=== PATIENT | male | born 1955 | race Caucasian/White ===

== ENCOUNTER 2017-11-30 09:00 | Outpatient (RCR) | payer MEDICAID, SELFPAY ==
--- NOTE | 2017-11-04 14:00 | NT_ITS ---
11/04/17 Armando states he has been ambulating without his cane the last couple days and is holding up well with this. Just got back from a chiropractic appt. He did receive manipulation and stim. Today's visit was a no charge as we did not perform any manual therapy or therapeutic procedure activities. Time was spent with patient education regarding MRI results which do indicate L5 nerve root impingement on L from disc extrusion. Will follow up with Armando next week for manual therapy techniques for Mulligan style SLR, manual distraction techniques via leg pulls as well as incorporate some soft tissue work to the L lumbar paraspinals and QL. MM/dl
--- NOTE | 2017-11-07 15:25 | PTTR_ITS ---
DATE: 11/07/17 Co treatment with KENDALL SanchezT: OBJECTIVE: Manual therapy: ([id number]). STM t/o low back and pelvic brim region. CFM over bilateral lumbar paraspinals, pelvic brim and sacral borders. Myofascial stretching t/o entire low back and pelvic brim region. * x Electrical Stim Unattended - [id number]: ended with IFC and cryo x 15 min while prone. Direct treatment time: 25 min Total treatment time: 40 min
--- NOTE | 2017-11-07 16:06 | PTTR_ITS ---
DATE: 11/07/17 SUBJECTIVE: Armando is looking into a referral for [facility]. Admits his calf pain has diminished. Is still using a crutch on occasion for ambulation purposes secondary to continued left LE radicular symptoms. OBJECTIVE: Manual therapy: ([id number]). Lumbopelvic mobs using extension techniques with Yonatan approach with PAs L2 through L5 followed by Mulligan style SLR on the left as well as manual distraction techniques. Direct treatment time: 2:30 til 3:00 P.M. Followed by soft tissue mobs with the REFINERY OPERATOR HELPER. See her note for details. Plan: Continue as indicated above. MM/gc
--- NOTE | 2017-11-10 16:00 | PTTR_ITS ---
DATE: 11/10/17 SUBJECTIVE: Seeing Dr. Ayoub next Tuesday to get a referral to pain clinic. Able to travel to [place] fairly comfortably. OBJECTIVE: Manual therapy: ([id number]). Arrived to [facility] ambulating without assistive device today. Mobilization of lumbopelvic region consisting of supine left leg pulls, Mulligan SLR technique and prone grade 2 PA mobs from L2 to L5. STM while in prone performing tendon massage along the lower thoracic/ lumbar vertebrae, iliac crest and sacral border, CFM to lumbar paraspinals, TPM to piriformis and gluts. Fascial stretching throughout the entire left low back and buttock. Had patient perform 10 prone press ups prior to application of IFC and cryotherapy. * x Electrical Stim Unattended - [id number]: Ended session with IFC and cryotherapy x 15 minutes to low back / left buttock while in prone. Direct treatment time: 30 minutes Total treatment time: 45 minutes
--- NOTE | 2017-11-14 14:00 | PTTR_ITS ---
DATE: 11/14/17 Co-treat with supervising PT, Kody Mcclure. OBJECTIVE: Manual therapy: ([id number]). STM to low back / left buttock while in prone consisting of tendon massage to lower thoracic / lumbar vertebrae, iliac crest and sacral border. CFM to lumbar paraspinals, TPM to gluts, skin rolling to thoracic and lumbar paraspinals. * x Electrical Stim Unattended - [id number]: Ended session with IFC and cryotherapy to low back /left buttock x 15 minutes while in side lying with pillow under head and between knees. Direct treatment time: 15 minutes Total treatment time: 30 minutes, post time spent with supervising PT.
--- NOTE | 2017-11-14 14:06 | PTTR_ITS ---
DATE: 11/14/17 SUBJECTIVE: Armando states that he is holding up considerably well. Drove to [place] and back to see his mother with manageable symptoms and no increase in radicular left LE pain. Was conscientious of proper lumbar positioning with use of a small pillow in his low back. Reports compliancy with his extension exercises. Is set up for a consultation at [facility], Dr. Velásquez, in mid to late January. He will speak with his PCP regarding a possible Pain Clinic referral. OBJECTIVE: Manual therapy: ([id number]). Mulligan style SLR to the left LE, manual distraction via leg pulls, posterior hip stretching of IT band and piriformis stretching, PA mobs in prone to L2 through L5 as well as segmental rotational mobs L2 through L5 S1 levels. He then rec'd soft tissue mobs performed by the STAFF PSYCHOLOGIST. For details see her note. Still (+) discogenic sign with SLR on his left. This is (-) on his right. (+) for pain reproduction with repetitive forward flexion for reproduction of LE radicular signs. Overall, appears to be making good gains functional stand point, i.e. walking short distances without the use of an axillary crutch and has resumed sleeping in his bed. Direct treatment time: 1:30 til 2:00 P.M. Plan: Continue as indicated above implementing Phase 1 core stabilization exercises at patient's next visit. MM/gc
--- NOTE | 2017-11-16 10:00 | PTTR_ITS ---
DATE: 11/16/17 SUBJECTIVE: Armando states that he has been having a little R sided back pain. Thinks it may be related on him laying for longer period of time for sleep which he is happy about, but admits that his mattress is not very ideal and does not have money to purchase a new one. Continues to use axillary crutch for community ambulation. Manual therapy: ([id number]). LE distraction via leg pulls on the L followed by Mulligan style SLR on the L. Then performed PA mobilizations grade 3 to the lumbar spine as well as segmental mobilizations into rotation l and R L1-L5. Then performed some light manual over pressure on L4-L5 while performing prone press ups. Direct treatment time: 30 mins Total treatment time: 30 mins with continued care with Ginger Stewart PTA for soft tissue work (see her note for specifics) A: Improvement with extension as he is able to nearly complete full elbow extension for press up. Did progress this to incorporate some exhalation at end range which he is able to isolate more pressure type discomfort centrally in low back with no radicular symptoms. P: Continue as above. MM/dl
--- NOTE | 2017-11-16 10:30 | PTTR_ITS ---
DATE: 11/16/17 Co-treat with supervising PT, Kody Mcclure. OBJECTIVE: Manual therapy: ([id number]). Mobilization of soft tissue throughout the low back with focus on the right today, while in prone. This included tendon massage along the lower thoracic / lumbar, iliac crest, CFM to bilateral lumbar paraspinals and TPM to right QL, iliocostalis lumborum and PRT to posterior obliques. As was the situation at last session, due to stomach sensitivity from hernia region of stomach when lying on stomach, pt transitioned to left side lying for stim and cryotherapy. * x Electrical Stim Unattended - [id number]: Ended session with IFC and cryotherapy x 15 minutes to low back while in left side lying with pillow under head and between knees. Direct treatment time: 15 minutes Total treatment time: 30 minutes
--- NOTE | 2017-11-21 13:45 | PTTR_ITS ---
DATE: 11/21/17 SUBJECTIVE: Indicated he had to take Tylenol for the first time in a few days over the weekend, after sitting for 4 hours while visiting with a friend. Had to leave his son's football scrimmage game on Tuesday after one hour due to standing for too long. Seeing chiropractor tomorrow. OBJECTIVE: Arrived to dept without crutch, ambulating without significant limp. Manual therapy: ([id number]). Mobilization of lumbopelvic region consisting of unilateral and bilateral leg pulls, Mulligan SLR on the left, prone positioned PA mobs at grade 2, as well as segmental rotational mobs at grade 2 at L1-L5 levels. Performed prone press ups x 10 reps and STM throughout the low back with focus on the left while in prone. Soft tissue mobilization included tendon massage along the lower thoracic / lumbar vertebrae and iliac crest, CFM and skin rolling technique to paraspinals, * x Electrical Stim Unattended - 61652m1: Ended session with IFC and cryotherapy x 15 minutes to low back while in left side lying with pillow between knees and under head. Direct treatment time: 25 minutes Total treatment time: 40 minutes
--- NOTE | 2017-11-24 10:08 | PTTR_ITS ---
DATE: 11/24/17 CO TREATMENT with supervising Suzette, Luis Carlos Mcclure. OBJECTIVE: Manual therapy: ([id number]). Soft tissue mobs throughout the low back and left upper buttock region. This was performed while in the prone position. Did utilize tendon massage along the lower thoracic, lumbar vertebrae, iliac crest as well as TP work to the left QL and glute. Cross friction to the lumbar paraspinals. Myofascial stretching to the entire low back and upper left buttock. * x Electrical Stim Unattended - [id number]: applied w/cryotherapy to the low back region while in side lying with a pillow between his knees and under his head x15 minutes. Direct treatment time: 15 min. Total treatment time: 30 min. SG/gc
--- NOTE | 2017-11-24 14:06 | PTTR_ITS ---
DATE: 11/24/17 SUBJECTIVE: Armando states his tolerating his golf outing well without significant LE radiculopathy. OBJECTIVE: Manual therapy: ([id number]). LE distractions on the left with leg pull followed by Mulligan style SLR. Then performed PA mobs in prone as well as gentle segmental mobs at a Grade 3 in prone. The patient was then seen by the DEVELOPER PROVER MECHANICAL for soft tissue mobs. Direct treatment time: 11:00 til 11:30 A.M. Assessment: Continues to make good steady gains regarding his radiculopathy and improved functional mobility. I do feel it is appropriate to start progressing with some core stabilization and light cardiovascular exercise as long as it does not exacerbate any of his symptoms of radiculopathy. The patient is in agreement with this POC. Plan: Continue 2x per week. MM/gc
--- NOTE | 2017-11-28 13:54 | PTTR_ITS ---
DATE: 11/28/17 SUBJECTIVE: Sven states that he was doing well, until this wknd. He reports helping his son remodel a room in new home. Indicated that he sat on a bucket and sanded for a few hours. He then played golf the next day of which he reports only being able to golf 12 holes and sat in golf cart the remainder of time. He also sat at a friends house and attempted to play cards, but found it was too much sitting. He reports compliancy with extension ex which he felt decrease his symptoms. He c/o sore low back. OBJECTIVE: Manual therapy: ([id number]). LE distractions via leg pulls as well as Mulligan SLR. He went into prone and received PA mobs of lumbar spine and STM t/o entire low back and buttock region. PRT's of bilateral glut medius, piriformis. CFM over left paraspinals, pelvic brim, sacral border. Myofascial stretching t/o same areas. * x Electrical Stim Unattended - [id number]: ended with IFC and spot cold/MHP to low back x 15 min while in sidelying position.. Direct treatment time: 35 min Total treatment time: 50 min
--- NOTE | 2017-11-30 09:00 | PTTR_ITS ---
DATE: 11/30/17 SUBJECTIVE: Armando states he thinks he is rebounding a little bit better after aggravating his back over the weekend with some painting while sitting on a 5 gallon bucket. Admits that his leg pain is virtually subsided and is primarily in his low back now. Admits that his extension exercises are going well. OBJECTIVE: Seen in PT for discussion of progression of an in clinic treatment to incorporate aquatic therapy, which he is agreeable to. Manual therapy: ([id number]). L LE distraction via leg pulls, Mulligan style SLR , some rotational mobilization in supine hook lying Therapeutic procedures (21630u0). for instruction in TA activation with 10 second hold. He did require verbal cues to avoid holding his breath and try to decrease over reliance of rectus abdominis for TA activation. He then received soft tissue work with Dena Erickson PTA (see her note specifics) Direct treatment time: 30 mins Total treatment time: 30 mins A: Holding up well with extension exercises. At this point do feel it is appropriate to start pushing more strengthening via aquatic therapy. P:Continue as above. MM/dl
--- NOTE | 2017-11-30 14:19 | PTTR_ITS ---
DATE: 11/30/17 Co treatment with Luis Carlos Mcclure DPT: OBJECTIVE: Manual therapy: ([id number]). STM t/o low back and buttock region with focus on the left. PRT's of left iliocostalis lumborum, glut medius, QL and oblique. CFM over bilateral lumbar paraspinals, pelvic brim and sacral border. Myofascial stretching t/o entire lumbopelvic region. * x Electrical Stim Unattended - 34161i8: ended with IFC and cryo x 15 min while in left sidelying position. Direct treatment time: 20 min Total treatment time: 35 min
== END 2017-12-02 23:59 | disposition home or self-care (01) ==
LOC: PT 09:00
PROVIDERS: PCP Family Medicine
DX: M54.5 Low back pain (principal)
CPT/HCPCS: 97014; 97110; 97140

== ENCOUNTER 2017-12-20 11:22 | Outpatient (CLI) | payer MEDICAID, SELFPAY ==
[2017-12-20 13:27] LABS: Hemoglobin A1C 7.4 % (4.5-6.2)
== END 2017-12-20 11:42 ==
PROVIDERS: PCP Family Medicine; Visit Provider Family Medicine
DX: E11.9 Type 2 diabetes mellitus without complications (principal)
CPT/HCPCS: 36415; 83036

== ENCOUNTER 2018-05-02 11:24 | Outpatient (CLI) | payer MEDICAID, SELFPAY ==
[2018-05-02 13:36] LABS: Hemoglobin A1C 8.5 % (4.5-6.2)
== END 2018-05-02 11:44 ==
PROVIDERS: PCP Family Medicine; Visit Provider Family Medicine
DX: E11.319 Type 2 diabetes mellitus with unspecified diabetic retinopathy without macular edema (principal)
CPT/HCPCS: 36415; 83036

== ENCOUNTER 2018-08-03 11:28 | Outpatient (CLI) | payer MEDICAID, SELFPAY ==
[2018-08-03 13:18] LABS: Anion Gap 10.6 mmol/L (3-11); BUN 31 mg/dL (7-18); CO2 25.4 mmol/L (21.0-32.0); Calcium 9.6 mg/dL (8.5-10.1); Chloride 103 mmol/L (98-107); Estimated GFR 51.52 (mL/min/1.73m2); Glucose 198 mg/dL (70-100); Hemoglobin A1C 8.1 % (4.5-6.2); Potassium 4.3 mmol/L (3.5-5.1); Sodium 139 mmol/L (136-145)
== END 2018-08-03 11:48 ==
PROVIDERS: PCP Family Medicine; Visit Provider Family Medicine
DX: I10 Essential (primary) hypertension (principal); E11.9 Type 2 diabetes mellitus without complications
CPT/HCPCS: 80048; 83036

== ENCOUNTER 2018-11-08 08:53 | Outpatient (CLI) | payer MEDICAID, SELFPAY ==
[2018-11-08 10:30] LABS: HCT 49.4 % (40.0-50.0); HGB 16.2 g/dL (13.5-17.5); Mean Corp. HGB Concentration 32.8 g/dL (32.0-36.0); Mean Corpuscular Hemoglobin 28.5 pg (27.0-33.0); Mean Platelet Volume 11.1 fL (8.0-11.0); Platelet Count 221 x1000/uL (130-400); RBC 5.68 m/cumm (4.50-6.00); White Blood Cell Count 9.41 k/cumm (4.4-10.8)
[2018-11-08 10:42] LABS: ALT 46 U/L (12-78); AST 23 U/L (15-37); Alkaline Phosphatase 79 U/L (46-116); Anion Gap 10.3 mmol/L (3-11); BUN 23 mg/dL (7-18); CO2 24.7 mmol/L (21.0-32.0); CREATININE 1.17 mg/dL (0.70-1.30); Calculated LDL 141 mg/dL; Chloride 105 mmol/L (98-107); Cholesterol 207 mg/dL (50-200); Glucose 190 mg/dL (70-100); HDL Cholesterol 27 mg/dL (40-60); Sodium 140 mmol/L (136-145); Triglyceride 196 mg/dL (30-150)
[2018-11-08 11:11] LABS: Bilirubin Negative (Negative); Blood Trace-intact (Negative); Clarity Clear (Clear); Glucose 500 mg/dL (Negative); Ketones Negative (Negative); Leukocyte Esterase Negative (Negative); Nitrite Negative (Negative); Urobilinogen 0.2 EU/dL (Up TO 0.2); pH 5.5 (5-8)
[2018-11-08 11:35] LABS: COMMENT (LAB VIEW ONLY) 96.38 mg/dL; Microalb ug/mg Crea 39.4 ug/mg Cr
[2018-11-08 11:42] LABS: Bacteria Few HPF (Negative); Epithelial Cells Negative HPF (Negative); Other Cells Negative (Negative); RBC 0-2 (0-2); WBC 0-2 HPF (0-5)
[2018-11-08 11:43] LABS: C & S Indicated? No; Casts Negative LPF (Negative); Crystals Moderate Uric Acid HPF (Negative); Mucus Negative (Negative)
[2018-11-08 12:20] LABS: Hemoglobin A1C 7.8 % (4.5-6.2)
== END 2018-11-08 09:13 ==
PROVIDERS: PCP Family Medicine; Visit Provider Family Medicine
DX: E11.9 Type 2 diabetes mellitus without complications (principal); R39.11 Hesitancy of micturition; R79.89 Other specified abnormal findings of blood chemistry
CPT/HCPCS: 36415; 80053; 80061; 83721; 85027; 81003; 81015; 82043; 82570; 83036

== ENCOUNTER 2019-03-29 03:18 | Outpatient (CLI) | payer MEDICAID, SELFPAY ==
--- NOTE | 2019-03-29 14:12 | DIABASSESS_ITS ---
DESCRIPTION/ASSESSMENT: Armando Ratliff presents for Medical Nutrition Therapy for diabetes with a jump in A1c from 7's to 8.2 and decided he needed to talk with someone about what can be done. 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 He drinks diet soda and cider. Physical Activity: Limited physical activity secondary to sciatic and achilles problem. He has had PT and childcare center director without resolution. Reports h/o high physical activity prior to his physical limitations. Medication: glipizide occasionally with hypoglycemia symptoms although he does not test. Intolerant to Metformin. Monitoring: daily fasting 130-140s. Risks/Related health history: Hospitalized with DVT a few years ago also treated for hypertension and hypercholesterolemia. Coping: admits to high financial stress and immobility resigned to making it through. Sleeps well. Denies depression symptoms. INTERVENTION: Explained physiology of diabetes and buttermaker continuous churn complications./ Food Guidelines: Reviewed diabetes food guide focused on low glycemic foods and increasing non=carbohydrate foods. Discussed choices to decrease frequency of Malian food and pizza for his noon meal. Physical Activity: Discussed options for him including 10 minute sessions of walking or resistance exercise periodically. Medication: discussed other medications that help with weight management as well as being cardio-protective. Monitoring: Discussed monitoring at different times of the day to see why A1c is elevated given his fasting blood sugar is mostly in acceptable range. ACTION PLAN: Armando will: test blood sugar with symptoms and occasionally before supper and before bed. Consider carbohydrate consumed at prior meal and activity level. increase physical activity daily bot hat work and at home increase awareness of carbohydrate foods being consumed; will increase vegetables as possible We will be in touch by telephone for follow up. Face to face 65 minutes MNT billed 4 units. No group education available at this time.
== END 2019-03-29 03:38 ==
PROVIDERS: PCP Family Medicine; Visit Provider Dietitian, Registered
DX: E11.9 Type 2 diabetes mellitus without complications (principal); Z71.3 Dietary counseling and surveillance
CPT/HCPCS: 97802

== ENCOUNTER 2019-09-25 08:06 | Outpatient (CLI) | payer MEDICAID, SELFPAY ==
[2019-09-28 02:36] LABS: SARS-CoV-2 RNA Undetected (Undetected); SARS-CoV-2 Specimen Source Nasopharynx
== END 2019-09-25 08:26 ==
PROVIDERS: PCP Family Medicine; Visit Provider Family Medicine
DX: Z11.59 Encounter for screening for other viral diseases (principal)
CPT/HCPCS: U0003

== ENCOUNTER 2019-10-09 09:03 | Outpatient (CLI) | payer MEDICAID, SELFPAY ==
[2019-10-13 21:25] LABS: SARS-CoV-2 RNA Detected (Undetected)
== END 2019-10-09 09:23 ==
PROVIDERS: PCP Family Medicine; Visit Provider Family Medicine
DX: Z11.59 Encounter for screening for other viral diseases (principal)
CPT/HCPCS: U0003

== ENCOUNTER 2019-10-19 08:17 | Outpatient (CLI) | payer MEDICAID, SELFPAY ==
[2019-10-25 22:36] LABS: SARS-CoV-2 RNA Undetected (Undetected)
== END 2019-10-19 08:37 ==
PROVIDERS: PCP Family Medicine; Visit Provider Family Medicine
DX: Z11.59 Encounter for screening for other viral diseases (principal)
CPT/HCPCS: U0003

== ENCOUNTER 2020-02-20 04:48 | Outpatient (CLI) | payer MEDICAID, SELFPAY ==
[2020-02-20 13:00] LABS: HCT 50.7 % (40.0-50.0); HGB 16.7 g/dL (13.5-17.5); MCH 28.3 pg (27.0-33.0); MCHC 32.9 % (32.0-36.0); MCV 85.8 fL (80-95); MPV 10.9 fL (8.0-11.0); Platelet Count 212 10^3/uL (130-400); RBC 5.91 10^6/uL (4.36-5.78); RDW-SD 46.1 fL; WBC 8.64 10^3/uL (4.4-10.8)
[2020-02-20 13:53] LABS: COMMENT (LAB VIEW ONLY) 77.91 mg/dL; Microalb ug/mg Crea 81.2 ug/mg Cr
[2020-02-20 13:54] LABS: ALT 30 U/L (16-63); AST 20 U/L (15-37); Albumin 4.4 g/dL (3.4-5.0); Alkaline Phosphatase 78 U/L (46-116); Anion Gap 15.5 mmol/L (3-11); BUN 20 mg/dL (7-18); Bilirubin, Total 0.9 mg/dL (0.2-1.0); CO2 22.5 mmol/L (21.0-32.0); CREATININE 1.19 mg/dL (0.70-1.30); Calcium 9.2 mg/dL (8.5-10.1); Calculated LDL 71 mg/dL (<100); Chloride 104 mmol/L (98-107); Cholesterol 138 mg/dL (<200); Glucose 200 mg/dL (74-106); HDL Cholesterol 31 mg/dL (40-60); Potassium 4.4 mmol/L (3.5-5.1); Sodium 142 mmol/L (136-145); TSH 1.74 uIU/mL (0.36-3.74); Total Protein 7.4 g/dL (6.4-8.2); Triglyceride 180 mg/dL (<150)
== END 2020-02-20 05:08 ==
PROVIDERS: PCP Family Medicine; Visit Provider Family Medicine
DX: E11.9 Type 2 diabetes mellitus without complications (principal); I10 Essential (primary) hypertension; Z00.00 Encounter for general adult medical examination without abnormal findings
CPT/HCPCS: 36415; 80053; 80061; 85027; 82043; 82570; 84443

== ENCOUNTER 2021-01-30 01:15 | Outpatient (CLI) | payer MEDICAID, SELFPAY ==
[2021-01-30 13:19] LABS: CREATININE 1.3 mg/dL (0.70-1.30); Calculated LDL 46 mg/dL (<100); Cholesterol 110 mg/dL (<200); Estimated GFR 55.75 (mL/min/1.73m2); HDL Cholesterol 29 mg/dL (40-60); Potassium 4.1 mmol/L (3.5-5.1); Triglyceride 178 mg/dL (<150)
[2021-01-30 14:05] LABS: Hemoglobin A1C 7.1 % (<5.7)
[2021-01-30 22:24] LABS: PSA, Screening 0.5 ng/mL (0.0-4.5)
== END 2021-01-30 01:16 | disposition home or self-care (01) ==
LOC: LOS 01:15
PROVIDERS: PCP Nurse Practitioner; Visit Provider Nurse Practitioner
DX: E11.9 Type 2 diabetes mellitus without complications; I10 Essential (primary) hypertension; E78.5 Hyperlipidemia, unspecified; Z12.5 Encounter for screening for malignant neoplasm of prostate
CPT/HCPCS: 36415; 80061; 84153; 82565; 83036; 84132

== ENCOUNTER 2021-03-24 18:18 | Emergency (ER) | payer MEDICAID, SELFPAY ==
[2021-03-24 18:22] VITALS: BP 147/78; PULSE 81; RESP 18; TEMP 36.3; O2SAT 98
--- NOTE | 2021-03-24 19:25 | W.ED.GENAD ---
Discharge Plan Disposition Patient Disposition: AGAINST MEDICAL ADVICE Discharge Details Clinical Impression: Acute knee pain, Acute shoulder pain Primary Care Provider: Heather Han ED Provider: Kaylyn Montano Home Meds and New Rx's Prescriptions: Continued (DME) OneTouch Ultra Blue Test Strip strip See Dose Instructions .ROUTE .MEDSUPPLY Qty: 100 RF: 4 loteprednol etabonate [Lotemax] 0.5 % drops,suspension 1 drp ophthalmic (eye) BID RF: 0 latanoprost 0.005 % drops 1 drp ophthalmic (eye) QPM RF: 0 Combigan 0.2-0.5 % drops 1 drp ophthalmic (eye) BID RF: 0 artifi.tears(hypromellose)(PF) 0.3 % drops 1 drp ophthalmic (eye) 4-8XD PRNRF: 0 Eliquis 5 mg tablet 5 mg PO BID Qty: 180 RF: 4 hydrochlorothiazide 12.5 mg tablet 12.5 mg PO DAILY Qty: 90 RF: 4 lisinopril 40 mg tablet 40 mg PO DAILY Qty: 90 RF: 3 Jardiance 25 mg tablet 25 mg PO QAM Qty: 90 RF: 3 glipizide 10 mg tablet 10 mg PO BID Qty: 180 RF: 3 metformin 500 mg tablet extended release 24hr 500 mg PO BID Qty: 180 RF: 4 rosuvastatin 10 mg tablet 10 mg PO DAILY Qty: 90 RF: 4 Discharge Data Discharge Date/Time-TO BE ENTERED AT DEPARTURE: 03/24/21 19:27 Medical Decision Making Patient is alert, oriented, of decisional capacity, GCS 15, ambulatory with steady gait I ordered x-ray imaging, considered head CT, however patient is 3 days status post injury and my concern for intracranial hemorrhage is quite low as patient is neurologically intact without headache Unfortunately patient eloped prior to x-ray interpretation and did not give us reason why, in fact nobody saw him exit the emergency room, he was, alert, oriented, of decisional capacity and did not appear to be impaired in any way at time of my initial assessment HPI General Mode of arrival: ambulatory. Date/Time Provider Initiated Documentation: 03/24/21 18:19. Limitations to Documentation: no limitations. Information obtained by: patient. HPI Narrative: This 65-year-old gentleman presents status post fall on Tuesday. He slipped while snowblowing reportedly. He did not hit his head. He did 0 his shoulder and his knee when he landed. He is anticoagulated but again denies any headache, loss of consciousness, did not hit his head. He presents today secondary to persistent but not worsening pain. He denies any back pain or abdominal pain. Pain is exacerbated with walking. Describes it as an ache. Related Data Home Medications Medication Instructions Recorded Confirmed blood sugar diagnostic #100 each 08/03/18 03/24/21 artifi.tears(hypromellose)(PF) 0.3 1 drp OPHTHALMIC (EYE) 4-8XD PRN 02/20/20 03/24/21 % eye drops brimonidine 0.2 %-timolol 0.5 % 1 drp OPHTHALMIC (EYE) BID 02/20/20 03/24/21 eye drops latanoprost 0.005 % eye drops 1 drp OPHTHALMIC (EYE) QPM 02/20/20 03/24/21 loteprednol etabonate 0.5 % eye 1 drp OPHTHALMIC (EYE) BID 02/20/20 03/24/21 drops,suspension apixaban 5 mg tablet 5 mg PO BID #180 tab 04/30/20 03/24/21 hydrochlorothiazide 12.5 mg tablet 12.5 mg PO DAILY #90 tab-cap 04/30/20 03/24/21 lisinopril 40 mg tablet 40 mg PO DAILY #90 tab-cap 04/30/20 03/24/21 empagliflozin 25 mg tablet 25 mg PO QAM #90 tab 10/21/20 03/24/21 glipizide 10 mg tablet 10 mg PO BID #180 tab-cap 10/21/20 03/24/21 metformin 500 mg tablet,extended 500 mg PO BID #180 tab 10/21/20 03/24/21 release 24hr rosuvastatin 10 mg tablet 10 mg PO DAILY #90 tab 10/21/20 03/24/21 Previous Rx's Medication Instructions Recorded blood sugar diagnostic #100 each 08/03/18 apixaban 5 mg tablet 5 mg PO BID #180 tab 04/30/20 hydrochlorothiazide 12.5 mg tablet 12.5 mg PO DAILY #90 tab-cap 04/30/20 lisinopril 40 mg tablet 40 mg PO DAILY #90 tab-cap 04/30/20 empagliflozin 25 mg tablet 25 mg PO QAM #90 tab 10/21/20 glipizide 10 mg tablet 10 mg PO BID #180 tab-cap 10/21/20 metformin 500 mg tablet,extended 500 mg PO BID #180 tab 10/21/20 release 24hr rosuvastatin 10 mg tablet 10 mg PO DAILY #90 tab 10/21/20 Allergies Allergy/AdvReac Type Severity Reaction Status Date / Time No Known Allergies Allergy Unverified 03/24/21 18:26 General Stated Complaint: Orthopedic SARIKA: 3 Review of Systems All systems reviewed & are unremarkable except as noted in HPI and below PFSH All Active Problems (Updated 03/25/21 @ 09:46 by FER Cortes) Acute knee pain (Acute) Acute shoulder pain (Acute) Proliferative diabetic retinopathy (Acute ~06/03/20) 06/03/20 [facility] [place]; 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 Hyperlipidemia associated with type 2 diabetes mellitus (Acute) Osteoarthritis of left knee (Chronic) Type 2 diabetes mellitus without complication (Chronic 09/05/15) Sexual function problem (Chronic) Increased body mass index (Chronic) Hx of varicose veins (Chronic) mild, not problematic Gastroesophageal reflux disease (Chronic) Essential hypertension (Chronic 01/20/16) Medical History (Updated 03/25/21 @ 09:46 by FER Cortes) Left lumbar radiculopathy (11/17/17) Pulmonary embolism Right femoral vein DVT Surgical History (Updated 01/27/21 @ 14:21 by Heather Han NP) Eye Surgery Repair detached retina x 2\ In total 8 surgeries- blind in left eye History of detached retina repair Repair of umbilical hernia X 7 Repair, ACL LEFT S/P right cataract extraction Status post repair of anterior cruciate ligament Tonsillectomy Family History (Updated 01/28/21 @ 07:40 by Fadi Moctezuma) Mother Diabetes Essential hypertension Hyperlipidemia Neoplasm Father , age 41 Myocardial infarction Brother , age 67 No problems noted. Brother Alcohol use disorder Substance use disorder Brother Alcohol use disorder Son No problems noted. Son No problems noted. Son No problems noted. Social History (Updated 01/28/21 @ 07:38 by Fadi Moctezuma) Smoking/Tobacco Use Status: Never Smoking risk assessment performed?: Yes Alcohol Intake: current Alcohol Intake frequency: holidays/special occasions only Drug use: Never Household members: family and children Communication Needs: Blind Do you need help understanding health information?: Rarely Pets and animals: Yes Sexually active: No Do you think of yourself as: straight/heterosexual Current gender identity: male What is your relationship status?: How often do you talk on the phone with friends or family?: three or more times per week How often do you get together with friends or relatives?: twice per week How often do you attend rastafari or muslim services?: decline to answer Do you belong to any clubs or organized social groups?: yes Panel score (0-1 are the most socially isolated patients): 2 What type of physical activity do you participate in: decline to answer Duration: > 90 minutes/day Frequency: 5-6 times per week Franca/Alevism: No preference Special franca needs: No Seatbelt use: always Drive intox or ride w/intox bus driver: No Do you feel safe at home: Yes Do you feel safe in your relationship?: Yes Exam Const General: cooperative, comfortable, no acute distress and well developed HENMT Other: Uvula midline, no visible evidence of trauma, no hemotympanum Eyes Pupils: PERRL Neck Other: No midline tenderness Resp Effort & Inspection: normal respiratory effort Auscultation: clear to auscultation bilaterally Cardio Rate: regular rate Rhythm: regular rhythm Other: Distal pulses intact GI Other: No flank or abdominal tenderness Skin General skin exam: no rashes or lesions noted Neuro General: patient alert and patient oriented x3 Cranial Nerves: CN's II-XI intact bilaterally and tongue midline Cognition: normal cognition Speech: speech normal Gait: normal gait Motor: strength 5/5 throughout Other: GCS 15 Extrem Shoulder/upper arm images: 1. Left shoulder tenderness, mildly decreased abduction and flexion, no crepitus, no elbow tenderness Upper/lower leg/hip images: 1. Mild tenderness, mild decreased range of motion, specifically abduction and external rotation 2. Mild tenderness, no visible evidence of trauma, no obvious effusion Course Vital Signs Vital signs: Vital Signs Temperature 36.3 C L 03/24/21 18:22 Pulse 81 03/24/21 18:22 Respiratory Rate 18 03/24/21 18:22 Blood Pressure 147/78 H 03/24/21 18:22 Pulse Oximetry 98 03/24/21 18:22 Temperature 36.3 C L 03/24/21 18:22 Temperature Source Temporal Artery Scan 03/24/21 18:22 Pulse 81 03/24/21 18:22 Respiratory Rate 18 03/24/21 18:22 Respiratory Effort Non-Labored 03/24/21 18:26 Blood Pressure 147/78 H 03/24/21 18:22 Pulse Oximetry 98 03/24/21 18:22 Oxygen Delivery Method Room Air 03/24/21 18:22 Oxygen Flow Rate 0 03/24/21 18:22 Pain Level 6 03/24/21 18:26
[2021-03-24 23:20] VITALS: BP 147/78; PULSE 81; RESP 18; TEMP 36.3; O2SAT 98
== END 2021-03-24 19:27 | disposition left against medical advice (07) ==
LOC: ER 18:22
PROVIDERS: Emergency Provider Physician Assistant; PCP Nurse Practitioner
DX: M25.562 Pain in left knee (principal); M25.512 Pain in left shoulder; W00.0XXA Fall on same level due to ice and snow, initial encounter; Z53.29 Procedure and treatment not carried out because of patient's decision for other reasons
CPT/HCPCS: 99281

== ENCOUNTER 2022-03-15 09:29 | Outpatient (CLI) | payer MEDICAID, SELFPAY ==
[2022-03-15 12:26] LABS: Calculated LDL 40 mg/dL (<100); Cholesterol 129 mg/dL (<200); HDL Cholesterol 34 mg/dL (40-60); Triglyceride 278 mg/dL (<150)
[2022-03-15 13:07] LABS: COMMENT (LAB VIEW ONLY) 57.67 mg/dL; Microalb ug/mg Crea 37.6 ug/mg Cr
[2022-03-15 23:57] LABS: PSA, Screening 0.5 ng/mL (<=4.5)
[2022-03-16 09:02] LABS: Hepatitis C Ab w Rflx HCV PCR Negative (Negative)
[2022-03-16 12:27] LABS: HIV-1/2 Ag & Ab Screen Negative (Negative)
== END 2022-03-15 09:30 | disposition home or self-care (01) ==
LOC: LOS 09:29
PROVIDERS: PCP Nurse Practitioner Family; Referring Provider Nurse Practitioner Family; Visit Provider Nurse Practitioner Family
DX: E78.5 Hyperlipidemia, unspecified (principal); E11.69 Type 2 diabetes mellitus with other specified complication; Z12.5 Encounter for screening for malignant neoplasm of prostate; Z11.4 Encounter for screening for human immunodeficiency virus [HIV]; Z11.59 Encounter for screening for other viral diseases
CPT/HCPCS: 36415; 80061; 84153; 86803; 87389; 82043; 82570

== ENCOUNTER 2022-07-27 01:24 | Outpatient (CLI) | payer MEDICAID, SELFPAY ==
--- NOTE | 2022-07-27 13:31 | DI.RAD_ITS ---
Exam(s) XR KNEE LT 3V AP,LAT,MERLINE EXAM: XR KNEE LT 3V AP,LAT,MERLINE CLINICAL HISTORY: increasing pain after fall,H/O ACL REPAIR, M25.562. TECHNIQUE: 2D digital imaging was performed of the left knee. Three images were obtained. AP, late ral and PA tunnel views were obtained. COMPARISON: There are no priors for comparison. FINDINGS: BONES: No acute fracture is present. No bony destructive lesion is seen. Enthesophytes are seen at t he anterior patella. An orthopedic staple is seen in the proximal tibia. JOINTS: Moderate degenerative changes are seen in the left knee characterized by joint space narrowin g and periarticular spurring. The findings are most marked in the medial femoral tibial joint. Noam drocalcinosis in the femoral tibial joint is present. There is a small joint effusion. SOFT TISSUE: There is a 2 cm curvilinear metallic density in the soft tissues medial to the tibial sh aft. IMPRESSION: 1. Moderate osteoarthritis of the knee. 2. 2 cm curvilinear metallic foreign body in the soft tissues of the proximal calf. Unexpected findings DATA REPOSITORY: RADIATION DOSE DELIVERED:
== END 2022-07-27 01:44 ==
LOC: DI 01:24
PROVIDERS: PCP Nurse Practitioner Family; Visit Provider Nurse Practitioner Family
DX: M25.562 Pain in left knee (principal)
CPT/HCPCS: 73562

== ENCOUNTER 2023-06-27 05:16 | Outpatient (CLI) | payer MEDICAID, SELFPAY ==
[2023-06-27 11:13] LABS: ALT 28 U/L (16-63); AST 29 U/L (15-37); Albumin 3.9 g/dL (3.4-5.0); Alkaline Phosphatase 71 U/L (46-116); Anion Gap 14.2 mmol/L (3-11); BUN 26 mg/dL (7-18); CO2 23.8 mmol/L (21.0-32.0); CREATININE 1.3 mg/dL (0.70-1.30); Calculated LDL 40 mg/dL (<100); Chloride 103 mmol/L (98-107); Cholesterol 117 mg/dL (<200); Estimated GFR 60.59 (mL/min/1.73m2); Glucose 190 mg/dL (74-106); HDL Cholesterol 31 mg/dL (40-60); Potassium 3.8 mmol/L (3.5-5.1); Sodium 141 mmol/L (136-145); Total Protein 6.9 g/dL (6.4-8.2); Triglyceride 233 mg/dL (<150)
[2023-06-27 11:35] LABS: Vitamin D 25 Total 16.2 ng/mL (30-100)
== END 2023-06-27 05:17 | disposition home or self-care (01) ==
LOC: LOS 05:16
PROVIDERS: PCP Nurse Practitioner Family; Visit Provider Nurse Practitioner Family
DX: E11.69 Type 2 diabetes mellitus with other specified complication (principal); E78.5 Hyperlipidemia, unspecified; R53.83 Other fatigue
CPT/HCPCS: 36415; 80053; 80061; 82306

== ENCOUNTER → 2023-12-12 09:16 | Outpatient (BNVA) | payer MEDICAID, SELFPAY | PROVIDERS: PCP Nurse Practitioner Family; Referring Provider Nurse Practitioner Family; Visit Provider Student in an Organized Health Care Education/Training Program | DX: M17.32 Unilateral post-traumatic osteoarthritis, left knee (principal) | CPT/HCPCS: 20610; J1010 ==

== ENCOUNTER 2024-04-11 12:33 | Outpatient (CLI) | payer MEDICAID, SELFPAY ==
[2024-04-11 12:25] LABS: BUN 17 mg/dL (7-18); CREATININE 1.4 mg/dL (0.70-1.30); Calcium 9.8 mg/dL (8.5-10.1); Chloride 103 mmol/L (98-107); Estimated GFR 55.43 (mL/min/1.73m2); Glucose 176 mg/dL (74-106); Potassium 4.2 mmol/L (3.5-5.1); Sodium 141 mmol/L (136-145); Uric Acid 6.1 mg/dL (3.5-7.2)
== END 2024-04-11 12:34 | disposition home or self-care (01) ==
LOC: LOS 12:37
PROVIDERS: PCP Nurse Practitioner Family; Visit Provider Nurse Practitioner Family
DX: M79.674 Pain in right toe(s) (principal); Z01.30 Encounter for examination of blood pressure without abnormal findings
CPT/HCPCS: 36415; 80048; 84550

== ENCOUNTER 2024-06-20 09:38 | Outpatient (CLI) | payer MEDICARE, MEDICAID, SELFPAY ==
--- NOTE | 2024-06-20 09:15 | DI.RAD_ITS ---
Exam(s) XR FOOT RT COMPLETE EXAM: XR FOOT RT COMPLETE CLINICAL HISTORY: pain in rt great toe,m79.674. TECHNIQUE: 2D digital imaging was performed of the right foot. Three images were obtained. AP, obl ique and lateral views were obtained. COMPARISON: No exams were available for comparison FINDINGS: BONES: No acute fracture is present. No bony destructive lesion is seen. There is an enthesophyte at the posterior calcaneus. There is a small plantar calcaneal spur. JOINTS: No dislocation present. There is mild narrowing of the 1st MTP joint. SOFT TISSUE: Normal. IMPRESSION: Minimal arthrosis in the right foot. Calcaneal spurs. DATA REPOSITORY: RADIATION DOSE DELIVERED:
== END 2024-06-20 09:58 ==
LOC: DI 09:39
PROVIDERS: PCP Nurse Practitioner Family; Visit Provider Nurse Practitioner Family
DX: M79.674 Pain in right toe(s) (principal)
CPT/HCPCS: 73630

== ENCOUNTER 2024-06-25 14:48 | Outpatient (REF) | payer MEDICARE, MEDICAID, SELFPAY ==
[2024-06-25 22:00] LABS: ALT 30 U/L (16-63); AST 15 U/L (15-37); Albumin 4.4 g/dL (3.4-5.0); Alkaline Phosphatase 91 U/L (46-116); BUN 20 mg/dL (7-18); Bilirubin, Total 1.6 mg/dL (0.2-1.0); CREATININE 1.2 mg/dL (0.70-1.30); Calcium 9.8 mg/dL (8.5-10.1); Calculated LDL 61 mg/dL (<100); Chloride 106 mmol/L (98-107); Cholesterol 126 mg/dL (<200); Estimated GFR 66.28 (mL/min/1.73m2); Glucose 133 mg/dL (74-106); HDL Cholesterol 42 mg/dL (>or=40); Potassium 4.3 mmol/L (3.5-5.1); Sodium 142 mmol/L (136-145); Total Protein 7.2 g/dL (6.4-8.2); Triglyceride 115 mg/dL (<150); Vitamin D 25 Total 25 ng/mL (30-100)
[2024-06-25 22:34] LABS: Uric Acid 4.7 mg/dL (3.5-7.2)
== END 2024-06-25 14:49 | disposition home or self-care (01) ==
LOC: LBN 14:48
PROVIDERS: PCP Nurse Practitioner Family; Visit Provider Nurse Practitioner Family
DX: E11.69 Type 2 diabetes mellitus with other specified complication (principal); E78.5 Hyperlipidemia, unspecified; E55.9 Vitamin D deficiency, unspecified; U07.1 COVID-19
CPT/HCPCS: 80053; 80061; 82306; 84550

== ENCOUNTER → 2024-07-05 14:16 | Outpatient (BNVA) | payer MEDICARE, MEDICAID, SELFPAY | PROVIDERS: PCP Nurse Practitioner Family; Referring Provider Nurse Practitioner Family; Visit Provider Podiatrist | DX: M79.674 Pain in right toe(s) (principal); M10.9 Gout, unspecified | CPT/HCPCS: 20600; 99204; J0702; J1100 ==

== ENCOUNTER → 2024-08-01 11:33 | Outpatient (BNVA) | payer MEDICARE, MEDICAID, SELFPAY | PROVIDERS: PCP Nurse Practitioner Family; Referring Provider Nurse Practitioner Family; Visit Provider Podiatrist | DX: M79.674 Pain in right toe(s) (principal); L03.031 Cellulitis of right toe; M10.9 Gout, unspecified | CPT/HCPCS: 99214 ==

== ENCOUNTER 2024-08-23 16:47 | Outpatient (REF) | payer MEDICARE, MEDICAID, SELFPAY ==
[2024-08-23 20:56] LABS: Abs Immature Grans 0.04 10^3/uL (0.0-0.06); Absolute Basophil Count 0.09 10^3/uL (0.0-0.2); Absolute Eosinophil Count 0.12 10^3/uL (0.0-0.7); Absolute Lymphocyte Count 2.33 10^3/uL (1.2-3.4); Absolute Monocyte Count 0.74 10^3/uL (0.1-0.8); Absolute Neutrophil Count 5.44 10^3/uL (1.2-6.7); ESR 4 mm/hr (0-20); Eosinophils % 1.4 %; HCT 48.5 % (40.0-50.0); HGB 15.9 g/dL (13.5-17.5); Immature Grans % 0.5 %; Lymphocytes % 26.6 %; MCH 28.1 pg (27.0-33.0); MCHC 32.8 % (32.0-36.0); MCV 86 fL (80-95); MPV 11.2 fL (8.0-11.0); Monocytes % 8.4 %; Neutrophils % 62.1 %; Platelet Count 221 10^3/uL (130-400); RBC 5.65 10^6/uL (4.36-5.78); RDW 14.4 % (11.8-14.1); RDW-SD 44.5 fL; WBC 8.76 10^3/uL (4.4-10.8)
[2024-08-23 21:08] LABS: Uric Acid 4.8 mg/dL (3.5-7.2)
[2024-08-23 21:10] LABS: C-Reactive Protein < 0.50 mg/dL (<or=0.5)
[2024-08-23 21:20] LABS: Hemoglobin A1C 5.9 % (<5.7)
== END 2024-08-23 16:48 | disposition home or self-care (01) ==
LOC: LBN 16:47
PROVIDERS: Podiatrist; PCP Nurse Practitioner Family; Visit Provider Nurse Practitioner Family
DX: E79.0 Hyperuricemia without signs of inflammatory arthritis and tophaceous disease (principal); L03.90 Cellulitis, unspecified
CPT/HCPCS: 85652; 83036; 84550; 85025; 86140

== ENCOUNTER → 2024-08-29 10:34 | Outpatient (BNVA) | payer MEDICARE, MEDICAID, SELFPAY | PROVIDERS: PCP Nurse Practitioner Family; Referring Provider Nurse Practitioner Family; Visit Provider Podiatrist | DX: M10.9 Gout, unspecified; M79.674 Pain in right toe(s); I70.223 Atherosclerosis of native arteries of extremities with rest pain, bilateral legs; I73.89 Other specified peripheral vascular diseases; M79.604 Pain in right leg; M79.605 Pain in left leg; E11.69 Type 2 diabetes mellitus with other specified complication; E78.5 Hyperlipidemia, unspecified | CPT/HCPCS: 99214 ==

== ENCOUNTER → 2024-12-06 10:05 | Outpatient (BNVA) | payer MEDICARE, MEDICAID, SELFPAY | PROVIDERS: PCP Nurse Practitioner Family; Referring Provider Nurse Practitioner Family; Visit Provider Physician Assistant | DX: M17.32 Unilateral post-traumatic osteoarthritis, left knee (principal) | CPT/HCPCS: 20610; J1010 ==

== ENCOUNTER → 2025-02-20 10:51 | Outpatient (BNVA) | payer MEDICARE, MEDICAID, SELFPAY | PROVIDERS: PCP Nurse Practitioner Family; Referring Provider Nurse Practitioner Family; Visit Provider Podiatrist | DX: M79.674 Pain in right toe(s) (principal); M79.675 Pain in left toe(s); E11.69 Type 2 diabetes mellitus with other specified complication; E78.5 Hyperlipidemia, unspecified; I70.223 Atherosclerosis of native arteries of extremities with rest pain, bilateral legs; M10.9 Gout, unspecified | CPT/HCPCS: 93922 ==